=== PATIENT | male | born 1990 | race Caucasian/White ===

== ENCOUNTER 2017-05-29 21:50 | Emergency (ER) | payer OTHER ==
[~2017-05-29] VITALS: Ht 180.3 cm; Wt 108.9 kg
[~2017-05-29 21:50] MED LIST: WALKER; [UNRECOGNIZED DRUG - OTHER]
--- NOTE | 2017-05-30 01:14 | ED ANKLE/FOOT INJURY COMPLAINT ---
History of Present Illness General Chief Complaint: Lower Extremity Injury Stated Complaint: BIBA FOR EVAL ? BROKEN FOOT...LEFT Source: patient, old records, EMS Exam Limitations: no limitations Vital Signs & Intake/Output Vital Signs & Intake/Output Vital Signs Date Time Temp Pulse Resp B/P B/P Pulse O2 O2 Flow FiO2 Mean Ox Delivery Rate 05/30 0827 96.5 05/30 0654 96.5 62 20 140/70 95 Room Air 05/30 0426 Room Air 05/30 0318 96.5 83 20 133/92 97 Room Air 05/30 0051 Room Air 05/29 2158 96.2 81 20 138/90 96 Room Air ED Intake and Output 05/30 0000 05/29 1200 Intake Total Output Total Balance Patient 240 lb Weight Weight Reported by Patient Measurement Method Allergies Coded Allergies: No Known Allergies (05/29/17) Triage Note: PT BIBA FROM HOME C/O L FOOT PAIN. PER PT FX FOOT A DAY AGO, WAS SENT HOME WITH CRUTCHES BUT HAS HAD HARD TIME USING THEM D/T CEREBRAL PALSY. PER PT "THE PA I SAW SAID I COULD COME BACK AND SPEND A NIGHT HERE AND THEN GO TO SHORT TERM REHAB." DENIES NUMBNESS/TINGLING IN FOOT. Triage Nurses Notes Reviewed? yes Occurred: last week Duration: day(s):, constant, continues in ED Timing: recent history Severity: moderate, severe Pain/Injury Location: Left: Foot. Method of Injury: unknown Modifying Factors: Improves With: immobilization, rest. Worsens With: movement. Associated Symptoms: GCS 15 since, stiffness HPI: Several days prior to admission patient complains of increasing atraumatic left foot pain. He was seen earlier in the day diagnosed with stress fracture of left fourth metatarsal. Returns because he is having difficulty ambulating with crutches and moving about with scooter. He denies fever chills nausea vomiting diarrhea abdominal pain chest pain shortness breath headache dysuria rash bleeding. (Howard BLAND,Jordin) Past History Travel History Traveled to [place] past 21 day No Medical History Any Pertinent Medical History? see below for history Neurological: cerebal palsy EENT: NONE Cardiovascular: NONE Respiratory: NONE Gastrointestinal: NONE Hepatic: NONE Renal: NONE Musculoskeletal: NONE Psychiatric: NONE Endocrine: NONE Blood Disorders: NONE Cancer(s): NONE CONSULTING SERVICES ASSOCIATE/Reproductive: NONE Surgical History Surgical History: non-contributory Psychosocial History What is your primary language Icelandic Tobacco Use: Current Daily Use Daily Tobacco Use Amount/Type: => 5 Cigarettes daily Family History Hx Contributory? No (Jordin Lawrence MD) Review of Systems Review of Systems Constitutional: Reports: no symptoms. EENTM: Reports: no symptoms. Respiratory: Reports: no symptoms. Cardiovascular: Reports: no symptoms. GI: Reports: no symptoms. Genitourinary: Reports: no symptoms. Musculoskeletal: Reports: see HPI, joint pain. Skin: Reports: no symptoms. Neurological/Psychological: Reports: no symptoms. Hematologic/Endocrine: Reports: no symptoms. Immunologic/Allergic: Reports: no symptoms. All Other Systems: Reviewed and Negative (Jordin Lawrence MD) Physical Exam Physical Exam General Appearance: well developed/nourished, alert, awake, anxious, mild distress Head: atraumatic, normal appearance Eyes: Bilateral: normal appearance, PERRL, EOMI. Ears, Nose, Throat: normal pharynx, normal ENT inspection, hearing grossly normal Neck: normal inspection, supple, full range of motion, no midline tenderness Cardiovascular/Respiratory: normal breath sounds, normal peripheral pulses, regular rate/rhythm, no respiratory distress Back: normal inspection, normal range of motion, no vertebral tenderness Leg/Knee/Thigh Left: normal range of motion, normal inspection Leg/Knee/Thigh Right: normal range of motion, normal inspection Ankle Left: normal inspection, normal range of motion Ankle Right: normal inspection, normal range of motion Foot Left: bone tenderness, limited range of motion, soft tissue tenderness Foot Right: normal inspection, normal range of motion Reflexes: 2+: knee (R), knee (L). Neuro/Vascular: normal motor function, normal sensation Tendon: normal tendon function Psychiatric: awake, alert, oriented x 3 Skin: intact, normal color, warm/dry (Jordin Lawrence MD) Progress Differential Diagnosis: fracture, contusion Plan of Care: Orders Procedure Date/time Status Regular Diet 05/30 B Active Durable Medical Equipment 05/30 0750 Active PT Evaluate & Treat 05/30 109 Active URINALYSIS 05/30 109 Active MAGNESIUM 05/30 109 Complete COMPREHENSIVE METABOLIC PANEL 05/30 109 Complete CBC WITHOUT DIFFERENTIAL 05/30 109 Complete CASE MANAGEMENT CONSULT 05/30 109 Active Laboratory Tests 05/30/17 0152: Anion Gap 12, Estimated GFR > 60, BUN/Creatinine Ratio 11.3, Glucose 97, Calcium 10.0, Magnesium 2.1, Total Bilirubin 0.6, AST 20, ALT 27, Alkaline Phosphatase 72, Total Protein 6.6, Albumin 4.1, Globulin 2.5, Albumin/Globulin Ratio 1.6, CBC w Diff NO MAN DIFF REQ, RBC 5.01, MCV 87.3, MCH 30.1, MCHC 34.5, RDW 12.8, MPV 7.9, Gran % 66.0, Lymphocytes % 24.5, Monocytes % 7.9, Eosinophils % 1.2, Basophils % 0.4, Absolute Granulocytes 4.5, Absolute Lymphocytes 1.7, Absolute Monocytes 0.5, Absolute Eosinophils 0.1, Absolute Basophils 0 Hand-Off Endorsed To: Radha BLAND,Winston Santo Endorsed Time: 0700 Pending: consult (PT, case mgmt) (Jordin Lawrence MD) Comments: 05/30/2017 8:03:53 AM patient signed out to me by Dr. lawrence at shift [employer] [facility]. I have converted farzad from a nonweightbearing posterior splint to nematic boot. We will attempt ambulation. Physical therapy has evaluated patient in the ED. 05/30/2017 8:50:49 AM although case management was attempting to provide her with a rolling walker, he stated that it was taking too long. He instead asked for one crutch to be used as a cane. I have treated him for this. He then requested a "medical" but when he was told that there was a particularly long wait today he declined this. We offered to call [facility] but he declined this as well stating he had no money. He ultimately went to the waiting room to "figure it out" himself. Current ambulated from the emergency department with a mildly antalgic but otherwise stable gait. (Radha BLAND,Winston Santo) Departure Departure Condition: Stable Clinical Impression Primary Impression: Metatarsal stress fracture of left foot Secondary Impressions: Cerebral palsy, Multifactorial gait disorder Referrals: Patient Has No Primary Care Dr (PCP/Family) Departure Forms: Customer Survey General Discharge Information (Jordin Lawrence MD) Departure Disposition: HOME OR SELF CARE Additional Instructions: Keep the pneumatic boot in place continuously. Follow-up with Dr. Pro today or Friday for reevaluation. Ibuprofen 600 mg every 6 hours as needed for pain. Notify your primary care doctor of this emergency department visit and treatment plan. Return if any concerns or sudden worsening. Please note that there might be incidental findings in your evaluation that are unrelated to the current emergency department visit. Please notify your primary care doctor about this emergency department visit in order to obtain and review all of the testing performed so that these incidental findings can be monitored as needed. If you had an x-ray performed, please understand that some fractures may not be seen on the initial set of x-rays. If your symptoms persist you might need a repeat set of x-rays to check for such a fracture. If you had a laceration evaluated, please understand that foreign bodies such as glass or wood may not be visible to the naked eye or on plain x-rays. If the wound becomes red, swollen, increasingly more painful or if there is any drainage from the wound, please have it reevaluated by a physician for the possibility of a retained foreign body. If you do not currently have a primary care physician then please contact the [facility] primary care practice at the following phone number: . If you're unable to follow up as outlined in the discharge instructions please return to the emergency department. Thank you for choosing the [facility] Emergency Department for your care. It was a pleasure to serve you today. Winston Garcia M.D. [facility] Prescriptions: Current Visit Scripts No Known Home Medications Rolling Walker UNIT SEE ADMIN CRITERIA #1 Use as instructed. (Radha BLAND,Winston Santo)
[2017-05-30 03:17] LABS: ABSOLUTE BASOPHIL COUNT 0 /CUMM (0.0-0.2); ABSOLUTE EOSINOPHIL COUNT 0.1 /CUMM (0.0-0.7); ABSOLUTE GRANULOCYTE CT 4.5 /CUMM (1.4-6.5); ABSOLUTE LYMPH COUNT 1.7 /CUMM (1.2-3.4); ABSOLUTE MONOCYTE COUNT 0.5 /CUMM (0.10-0.60); BASOPHIL % 0.4 % (0.0-2.0); EOSINOPHIL % 1.2 % (0-5); HEMATOCRIT 43.7 % (42-52); MEAN CORPUSCULAR HGB 30.1 PG (27.0-31.0); MEAN CORPUSCULAR HGB CONC 34.5 G/DL (33.0-37.0); MEAN CORPUSCULAR VOLUME 87.3 FL (80.0-94.0); MEAN PLATELET VOLUME 7.9 FL (7.4-10.4); PLATELET COUNT 335 /CUMM (130-400); RBC DISTRIBUTION WIDTH 12.8 % (11.5-14.5); RED BLOOD CELL CT 5.01 /CUMM (4.70-6.10); WHITE BLOOD CELL COUNT 6.8 /CUMM (4.8-10.8)
[2017-05-30 06:54] VITALS: BP 140/70
[2017-05-30] MEDS ORDERED: RW (08:28)
== END 2017-05-30 08:29 ==
LOC: ERH 21:50
PROVIDERS: Emergency Medicine
DX: S92.302A Fracture of unspecified metatarsal bone(s), left foot, initial encounter for closed fracture (principal); G80.9 Cerebral palsy, unspecified; R26.9 Unspecified abnormalities of gait and mobility; X58.XXXA Exposure to other specified factors, initial encounter
CPT/HCPCS: 97116-GP; 97161-GP; 97530-GP